=== PATIENT | male | born 1985 | race Caucasian/White ===

== ENCOUNTER 2017-06-27 15:27 | Emergency (ER) | payer SELFPAY ==
[~2017-06-27] VITALS: Ht 175.3 cm; Wt 86.0 kg
[2017-06-27] MEDS ORDERED: KETOROLAC 30 MG/1 ML IM ONE (17:00)
[2017-06-27 18:10] LABS: BASOPHILS # (AUTO) 0.09 x10^3/uL (0-0.1); BASOPHILS % (AUTO) 1 % (0-1); EOSINOPHILS # (AUTO) 0.04 x10^3/uL (0-0.4); EOSINOPHILS % (AUTO) 0 % (1-7); LYMPHOCYTES # (AUTO) 2.43 x10^3/uL (1-3.4); LYMPHOCYTES % (AUTO) 16 % (22-44); MD NO; MEAN CORPUSCULAR HEMOGLOBIN 31.9 pg (27.5-34.5); MEAN CORPUSCULAR HGB CONC 34.1 g/dL (33.2-36.2); MEAN CORPUSCULAR VOLUME 93.7 fL (81-97); MEAN PLATELET VOLUME 9.6 fL (7.4-10.4); MONOCYTES # (AUTO) 1.01 x10^3/uL (0.2-0.8); MONOCYTES % (AUTO) 7 % (2-9); NEUTROPHILS # (AUTO) 11.35 x10^3/uL (1.8-6.8); NEUTROPHILS % (AUTO) 76 % (42-75); PLATELET COUNT 356 x10^3/uL (130-400); RED BLOOD COUNT 4.88 x10^6/uL (4.38-5.82)
[2017-06-27 18:22] LABS: ALBUMIN 4.8 g/dL (3.4-5.0); ANION GAP 9 mmol/L (5-15); CALCIUM 9.3 mg/dL (8.5-10.1); CHLORIDE 103 mmol/L (98-107); CREATININE 1.21 mg/dL (0.7-1.3); SALICYLATE LEVEL 2.6 mg/dL (2.8-20.0)
[2017-06-27 18:23] LABS: ACETAMINOPHEN < 2 mcg/mL (10-30)
[2017-06-27] MEDS ORDERED: LORazepam 1MG TABLET ONE (18:39)
[2017-06-27] MEDS ORDERED: LORazepam 1MG TABLET PO ONE (19:00)
[2017-06-27] MEDS ORDERED: ZIPRASIDONE 20 MG INJ IM ONE ×2 (19:52→20:00)
[2017-06-27] MEDS ORDERED: ZIPRASIDONE 20MG CAPSULE PO ONE (20:00)
[2017-06-27 20:59] LABS: AMPHETAMINE SCREEN, URINE Positive (Negative); BARBITURATE SCREEN, URINE Negative (Negative); BENZODIAZEPINE SCREEN, URINE Negative (Negative); CANNABINOID SCREEN, URINE Positive (Negative); COCAINE SCREEN, URINE Negative (Negative); METHADONE SCREEN, URINE Negative (Negative); OPIATE SCREEN, URINE Positive (Negative)
[2017-06-27 23:46] VITALS: BP 112/57
== END 2017-06-28 03:08 | disposition home or self-care (01) ==
LOC: ED 17:34
DX: M54.5 Low back pain (principal); G89.11 Acute pain due to trauma; I10 Essential (primary) hypertension; Z00.8 Encounter for other general examination
CPT/HCPCS: 36415; 72110; 80048; 80307; 80329; 82040; 85025; 96372; 99285; J1885; J3486; G0480

== ENCOUNTER 2017-06-27 15:55 | Emergency (ER) | payer SELFPAY ==
[~2017-06-27] VITALS: Ht 175.3 cm; Wt 86.0 kg
[2017-06-27 15:57] VITALS: BP 153/98
[2017-06-27] MEDS ORDERED: KETOROLAC 30 MG/1 ML ONE (16:41)
== END 2017-06-27 16:02 | disposition left against medical advice (07) ==
LOC: ED 15:56
DX: M54.9 Dorsalgia, unspecified (principal); Z53.21 Procedure and treatment not carried out due to patient leaving prior to being seen by health care provider